=== PATIENT | male | born 1935 | race Native Hawaiian/Other Pacific Islander ===

== ENCOUNTER 2016-10-18 11:43 | Outpatient (CLI) | payer OTHER, BC ==
[~2016-10-18 11:43] MED LIST: AMBIEN5 MG PO; AMLO2.5T PO; ASA LO-DOSE81 MG PO; ATEN25TA21 PO; DONE5TAB PO; EQL FOLIC ACI400 MCG OR; FENT12DI3 TD; LEVO0.1T6 PO; LYRICA150 MG PO; NEXIUM40 M1 PO; NITROFURANTOIN100 M1 PO; OXYC5TAB53 PO; PANT40TA PO; SIMV40TA57 PO; TRAM50TA PO; VIT E & C EX; VITAMIN B-6200 M1 PO; ZANTAC300 MG PO; [UNRECOGNIZED DRUG - OTHER] OR
== END 2016-10-18 19:02 | disposition home or self-care (01) ==
LOC: LAB 11:43
DX: R10.84 Generalized abdominal pain (principal); R10.817 Generalized abdominal tenderness
CPT/HCPCS: 81000; 87077; 87086; 87088; 87186

== ENCOUNTER 2016-10-30 11:25 | Outpatient (CLI) | payer OTHER, BC ==
[2016-10-30 12:12] LABS: PLATELET COUNT 196 K/uL (142-355)
[2016-10-30 12:45] LABS: POTASSIUM 3.7 mmol/L (3.6-5.2)
[2016-10-30 13:26] LABS: PARTIAL THROMBOPLASTIN TIME 26.8 SECONDS (24.5-33.6)
== END 2016-10-30 19:35 | disposition home or self-care (01) ==
LOC: LABW 11:25
PROVIDERS: Surgery
DX: I71.4 Abdominal aortic aneurysm, without rupture (principal); Z01.810 Encounter for preprocedural cardiovascular examination; Z01.811 Encounter for preprocedural respiratory examination; Z01.812 Encounter for preprocedural laboratory examination; R79.89 Other specified abnormal findings of blood chemistry; N18.4 Chronic kidney disease, stage 4 (severe)
CPT/HCPCS: 36415; 80048; 85027; 85610; 85730; 93005

== ENCOUNTER 2016-11-23 10:51 | Inpatient (IN) | payer OTHER, BC ==
[~2016-11-23] VITALS: Ht 182.9 cm; Wt 96.2 kg
[2016-11-23 12:00] VITALS: BP 162/54; TEMP 98.3
[2016-11-23 12:51] VITALS: BP 144/80; TEMP 97.8; Ht 182.9 cm; Wt 96.2 kg
[2016-11-23 13:51] LABS: PLATELET COUNT 303 K/uL (142-355)
[2016-11-23 14:18] LABS: POTASSIUM 3.6 mmol/L (3.6-5.2); SODIUM 137 mmol/L (136-145)
[2016-11-23 16:00] VITALS: BP 167/76; TEMP 98.1
[2016-11-23 20:00] VITALS: BP 134/63; TEMP 97.9
[2016-11-24] VITALS: BP 143/75; TEMP 97.3
[2016-11-24 04:00] VITALS: BP 131/74; TEMP 97.3
[2016-11-24 05:13] LABS: PLATELET COUNT 310 K/uL (142-355)
[2016-11-24 05:34] LABS: POTASSIUM 3.8 mmol/L (3.6-5.2)
[2016-11-24 08:00] VITALS: BP 147/81; TEMP 97.6
[2016-11-24] MEDS ORDERED: FOLI1TAB26 PO (08:06)
[2016-11-24] MEDS ORDERED: HYDRALAZINE25 MG PO (08:18)
[2016-11-24] MEDS ORDERED: VITAMIN E400 UNIT OR (08:20)
[2016-11-24] MEDS ORDERED: TEMA30CA18 PO (08:21)
[2016-11-24] MEDS ORDERED: CYAN10009 IM (08:25)
[2016-11-24] MEDS ORDERED: ZINC100 M1 OR (08:30)
[2016-11-24] MEDS ORDERED: METOCLOPRAM5 MG OR (08:32)
[2016-11-24] MEDS ORDERED: ROBITUSSIN100 MG/5 M OR (08:36)
[2016-11-24] MEDS ORDERED: PROTONIX20 MG PO (08:38)
[2016-11-24 12:00] VITALS: BP 117/56; TEMP 97.8
[2016-11-24 14:30] LABS: POTASSIUM 3.3 mmol/L (3.6-5.2); SODIUM 136 mmol/L (136-145)
[2016-11-24 14:38] LABS: PLATELET COUNT 308 K/uL (142-355)
[2016-11-24 16:00] VITALS: BP 130/50; TEMP 97.9
[2016-11-24 20:00] VITALS: BP 137/65; TEMP 97.8
[2016-11-25 00:29] VITALS: BP 131/50; TEMP 97.8
[2016-11-25 04:00] VITALS: BP 116/50; TEMP 97.9
[2016-11-25 04:51] LABS: PLATELET COUNT 337 K/uL (142-355)
[2016-11-25 04:54] LABS: POTASSIUM 3.9 mmol/L (3.6-5.2)
[2016-11-25 08:00] VITALS: BP 136/68; TEMP 98
[2016-11-25 12:24] VITALS: BP 126/63; TEMP 97.4
[2016-11-25 16:00] VITALS: BP 142/65; TEMP 97.4
[2016-11-25 20:00] VITALS: BP 150/71; TEMP 97.7
[2016-11-26 00:25] VITALS: BP 135/69; TEMP 97.5
[2016-11-26 05:09] VITALS: BP 142/75; TEMP 97.8
[2016-11-26 06:21] LABS: PLATELET COUNT 318 K/uL (142-355)
[2016-11-26 08:00] VITALS: BP 142/72; TEMP 98
[2016-11-26 12:00] VITALS: BP 125/53; TEMP 98.7
[2016-11-26 16:00] VITALS: BP 138/68; TEMP 97.7
[2016-11-26 19:57] VITALS: BP 145/60; TEMP 97.6
[2016-11-27] VITALS: BP 169/88; TEMP 97.8
[2016-11-27 04:55] LABS: PLATELET COUNT 286 K/uL (142-355)
[2016-11-27 05:06] LABS: POTASSIUM 4.6 mmol/L (3.6-5.2)
[2016-11-27 05:31] VITALS: BP 147/90; TEMP 98
[2016-11-27 08:20] VITALS: BP 163/88; TEMP 97.9
[2016-11-27 12:00] VITALS: BP 138/62; TEMP 98
[2016-11-27 16:00] VITALS: BP 186/81; TEMP 98.3
[2016-11-27 20:00] VITALS: BP 114/65; TEMP 97.9
[2016-11-28] VITALS: BP 140/70; TEMP 97.9
[2016-11-28 04:00] VITALS: BP 148/71; TEMP 97.9
[2016-11-28 06:36] LABS: POTASSIUM 4.2 mmol/L (3.6-5.2)
[2016-11-28 07:13] LABS: PLATELET COUNT 281 K/uL (142-355)
[2016-11-28 08:00] VITALS: BP 149/89; TEMP 98
[2016-11-28 12:00] VITALS: BP 135/76; TEMP 98.1
[2016-11-28 16:00] VITALS: BP 138/62; TEMP 98
[2016-11-28 20:00] VITALS: BP 125/66; TEMP 97.9
[2016-11-29 00:59] VITALS: BP 128/59; TEMP 98.1
[2016-11-29 04:00] VITALS: BP 147/78; TEMP 98.1
[2016-11-29 06:01] LABS: POTASSIUM 4.8 mmol/L (3.6-5.2)
[2016-11-29 06:19] LABS: PLATELET COUNT 278 K/uL (142-355)
[2016-11-29 08:00] VITALS: BP 134/84; TEMP 97.9
== END 2016-11-29 10:36 | disposition home health service (06) | DRG 194 ==
LOC: MED/SURG 10:51
PROVIDERS: Internal Medicine; ADMIT Internal Medicine
DX: J18.8 Other pneumonia, unspecified organism (principal); N39.0 Urinary tract infection, site not specified; N18.4 Chronic kidney disease, stage 4 (severe); D72.828 Other elevated white blood cell count; R41.82 Altered mental status, unspecified; I12.9 Hypertensive chronic kidney disease with stage 1 through stage 4 chronic kidney disease, or unspecified chronic kidney disease; K21.9 Gastro-esophageal reflux disease without esophagitis; K44.9 Diaphragmatic hernia without obstruction or gangrene
CPT/HCPCS: 36415; 36591; 36600; 80048; 80053; 81000; 82550; 82805; 82948; 83605; 83735; 83880; 84484; 85027; 87040; 87077; 87088; 87185; 87186; 87205; 93005; 94640; 94664; 94760; 96372; J1644; J1956; J2920; J2930; J3370

== ENCOUNTER 2017-01-02 09:28 | Outpatient (CLI) | payer OTHER, BC ==
[~2017-01-02 09:28] MED LIST changes: +CYAN10009 IM; +FOLI1TAB26 PO; +HYDRALAZINE25 MG PO; +METOCLOPRAM5 MG OR; +PROTONIX20 MG PO; +ROBITUSSIN100 MG/5 M OR; +TEMA30CA18 PO; +VITAMIN E400 UNIT OR; +ZINC100 M1 OR
== END 2017-01-02 11:30 | disposition home or self-care (01) ==
LOC: LABW 09:28
DX: R19.7 Diarrhea, unspecified (principal)
CPT/HCPCS: 82272; 87015; 87045; 87205; 87206; 87328; 87329; 87338; 87798; 87899

== ENCOUNTER 2017-03-13 14:59 | Inpatient (IN) | payer OTHER, BC ==
[~2017-03-13] VITALS: Ht 182.9 cm; Wt 98.7 kg
[2017-03-13] VITALS (7 sets, daily range): BP systolic 90–155; BP diastolic 52–90; TEMP 97.7–97.9
[2017-03-13 15:33] LABS: PLATELET COUNT 217 K/uL (142-355)
[2017-03-13 15:50] LABS: PARTIAL THROMBOPLASTIN TIME 25.3 SECONDS (24.5-33.6)
[2017-03-13 16:23] LABS: POTASSIUM 4.3 mmol/L (3.6-5.2)
[2017-03-13] MEDS ORDERED: POTASSIUM GLUC550 M1 PO (19:50)
--- NOTE | 2017-03-13 20:00 | NUR ---
Received pt from ER via stretcher. Pt alert and oriented. No distress noted at this time. Denies pain. Assessment completed. Urostomy noted with clear urine in bag. Lower ext cool to touch. Pt has paralasis to lower ext. O2 via NC at 3L/min. 20g to RAC with NS infusing at 175cc/hr. No s/s of infiltration noted. Lungs clear and diminished to auscultation. Bed in lower position. Call light within reach. Will continue to monitor.
--- NOTE | 2017-03-13 20:45 | NUR ---
Pt family at bedside. Went over home meds with . left urostomy equipment at bedside for pt.
--- NOTE | 2017-03-13 21:00 | NUR ---
Dr. Yañez notified of pt's home meds. Orders given at this time.
[2017-03-14] VITALS (24 sets, daily range): BP systolic 83–187; BP diastolic 50–91; TEMP 98–98.9
--- NOTE | 2017-03-14 00:30 | NUR ---
Pt resting in bed with eyes closed. No distress noted at this time. VSS per monitor.
--- NOTE | 2017-03-14 04:56 | NUR ---
Pt had rhythm change on monitor. EKG ordered at this time.
[2017-03-14 05:42] LABS: PLATELET COUNT 151 K/uL (142-355)
--- NOTE | 2017-03-14 05:56 | NUR ---
Dr. Yañez notified of pt's EKG. No orders given at this time.
[2017-03-14 06:02] LABS: POTASSIUM 4.1 mmol/L (3.6-5.2)
--- NOTE | 2017-03-14 08:00 | NUR ---
AM ASSESSMENT COMPLETE
--- NOTE | 2017-03-14 10:45 | NUR ---
DR JORGENSEN AT BS
--- NOTE | 2017-03-14 12:32 | NUR ---
FAMILY AT BS
--- NOTE | 2017-03-14 16:07 | NUR ---
FAMILY AT BS
--- NOTE | 2017-03-14 18:00 | NUR ---
PT ALERT AND ORIENTED. PT HAS HAD NO C/O DURING THIS SHIFT. UROSTOMY INTACT AND DRAINING, SEDIMENT NOTED IN URINE. IV INTACT, FLUIDS INFUSING W/O DIFF @150ML/HR.
--- NOTE | 2017-03-14 20:00 | NUR ---
FAMILY AT BEDSIDE. MULTIPLE PEOPLE IN AND OUT OF PATIENTS ROOM TWO AT A TIME. PATIENT AWAKE AND TALKING. NO ACUTE DISTRESS NOTED.
--- NOTE | 2017-03-14 20:05 | NUR ---
RESPIRATORY AT BEDSIDE FOR NEBULIZED TREATMENT AND INSPIRATORY SPIROMETER
--- NOTE | 2017-03-14 21:41 | NUR ---
[facility] CALLED IN FOR POSITIVE BLOOD CULTURE. DR JORGENSEN NOTIFIED BY PHONE. NO CHANGE IN PATIENT TREATMENT.
--- NOTE | 2017-03-14 22:40 | NUR ---
RESPIRATORY AT BEDSIDE FOR NEBULIZED TREATMENT AND INSPIRATORY SPIROMETER.
[2017-03-15] VITALS (19 sets, daily range): BP systolic 117–155; BP diastolic 54–83; TEMP 97.6–98.2
--- NOTE | 2017-03-15 03:27 | NUR ---
RESPIRATORY AT BEDSIDE FOR NEBULIZED TREATMENT AND INSPIRATORY SPIROMETER. PATIENT SAID " I FEEL LIKE THESE ARE KILLING ME." PATIENT SAID IT CAUSES MILD DISCOMFORT IN HIS CHEST AND MAKES HIM FEEL FUNNY. NO CHANGE IN HEART RATE, BLOOD PRESSURE, RESPIRATIONS, OR O2 SATURATION NOTED DURRING DISCOMFORT. PATIENT ADVISED THIS HAPPENS EVERY TIME HE HAS TAKEN NEBULIZED BREATHING TREATMENTS IN THE PAST. NO ACUTE DISTRESS NOTED. WILL CONTINUE TO MONITOR PATIENT FOR CHANGES.
--- NOTE | 2017-03-15 05:05 | NUR ---
PATIENT ASLEEP AND AWAKE TO VOICE. NO ACUTE DISTRESS NOTED.
--- NOTE | 2017-03-15 06:00 | NUR ---
NEW IV STARTED 22 GA RIGHT HAND. BLOOD DRAWN FOR LABS. NO COMPLAINTS
[2017-03-15 06:21] LABS: PLATELET COUNT 133 K/uL (142-355)
[2017-03-15 06:37] LABS: POTASSIUM 3.4 mmol/L (3.6-5.2)
--- NOTE | 2017-03-15 07:30 | NUR ---
RESP AT BS FOR BREATHING TREATMENT. NAD NOTED. PT LOW FOWLERS. IV INTACT AND PATENT. SOUTH TO BSD.
--- NOTE | 2017-03-15 08:30 | NUR ---
PT HIGH FOWLERS EATING BREAKFAST. NAD NOTED. PT DENIES NEEDS/COMPLAINTS. IV INTACT AND PATENT. NO S/S INFILTRATION. O2 ON ORDERED.
--- NOTE | 2017-03-15 09:40 | NUR ---
AM MEDS TAKEN WITHOUT DIFFICULTY. NAD NOTED.
--- NOTE | 2017-03-15 10:38 | NUR ---
FAMILY AT BS TO VISIT. PT DROWSY AT THIS TIME. WILL AROUSE TO VOICE AND STIMULI BUT QUICKLY FALLS BACK TO SLEEP. PT STATED TO HE DID NOT GET MUCH SLEEP THROUGH THE NIGHT AND WAS TIRED. VITALS STABLE AT THIS TIME. EKG DONE. WILL MONITOR.
--- NOTE | 2017-03-15 12:07 | NUR ---
DR JORGENSEN AT BS TALKING WITH PT AND FAMILY. PT ALERT AND ORIENTED. NAD NOTED AT THIS TIME
--- NOTE | 2017-03-15 12:30 | NUR ---
PT HIGH FOWLERS EATING LUNCH. NAD NOTED. IV INTACT AND PATENT. AT BS.
--- NOTE | 2017-03-15 14:16 | NUR ---
PT RESTING WITH EYES CLOSED. AROUSES EASILY. NAD NOTED. AT BS.
--- NOTE | 2017-03-15 15:00 | NUR ---
PT RESTING WITH EYES CLOSED. NAD NOTED. FAMILY AT .
--- NOTE | 2017-03-15 16:32 | NUR ---
[facility] WITH RESP IN AT THIS TIME FOR ECHO.
--- NOTE | 2017-03-15 20:00 | NUR ---
PM ASSESSMENT COMPLETED. PT SMILING AND TALKING WITH NURSE. SOUTH DRAINING AT BEDSIDE. IV SITE WITHOUT REDNESS OR SWELLING. INFUSING PER PUMP.
--- NOTE | 2017-03-15 20:12 | NUR ---
PT C/O NECK PAIN. PAIN SCALE 6. MEDICATED WITH TRAMADOL 100MG ORDERED. PT WITH VISITORS AT BEDSIDE.
--- NOTE | 2017-03-15 23:55 | NUR ---
PT C/O NECK PAIN. STATES HE TAKES TRAMADOL AROUND THE CLOCK AT HOME. DR. BLOOM NOTIFIED. ORDER RECEIVED.
[2017-03-16] VITALS (16 sets, daily range): BP systolic 133–189; BP diastolic 70–103; TEMP 97.8–98.2
--- NOTE | 2017-03-16 00:07 | NUR ---
TRAMADOL 100MG GIVEN PO FOR NECK PAIN ORDERED. PAIN SCALE 7
--- NOTE | 2017-03-16 04:53 | NUR ---
LAB PRESENT FOR BLOOD DRAW. PT AWAKE AND ALERT. STATES HE HAS NOT SLEPT MUCH.
[2017-03-16 05:35] LABS: PLATELET COUNT 117 K/uL (142-355)
--- NOTE | 2017-03-16 09:00 | NUR ---
PT NAUSEATED, HE STATES THAT IT HAPPENS SOMETIMES, STATES THAT HE DOES NOT NEED ANYTHING AND THAT IT WILL PASS
--- NOTE | 2017-03-16 10:12 | NUR ---
FAMILY AT BS
[2017-03-16] MEDS ORDERED: ZOFRAN8 MG PO (12:13)
--- NOTE | 2017-03-16 12:34 | NUR ---
DR JORGENSEN AT BS
--- NOTE | 2017-03-16 15:05 | NUR ---
PT TRANFERRED TO #[id number]
--- NOTE | 2017-03-16 15:30 | NUR ---
REPORT GIVEN TO CRISTI SCHILLING RN.
--- NOTE | 2017-03-16 16:10 | NUR ---
6295 REC'D PT FROM ICU VIA BED. PT ASSISTED TO BED IN ROOM 1117. FAMILY AT BS. RT ARM NOTED TO BE SWOLLEN AT IV SITE. IVF'S DC'D AT THIS TIME. IV SITE DC'D ROUTINE SITE CARE GIVEN. ICU NURSE NOTIFIED FOR SITE VERIFICATION. WILL OBTAIN NEW IV SITE
[2017-03-17] VITALS: BP 172/90; TEMP 98.5
[2017-03-17 04:00] VITALS: BP 154/82; TEMP 97.8
[2017-03-17 05:07] LABS: PLATELET COUNT 136 K/uL (142-355)
[2017-03-17 05:20] LABS: POTASSIUM 3.5 mmol/L (3.6-5.2)
[2017-03-17 08:00] VITALS: BP 164/84; TEMP 98.3
[2017-03-17 12:00] VITALS: BP 157/71; TEMP 98.8
[2017-03-17 16:00] VITALS: BP 141/72; TEMP 98.6
[2017-03-17 20:00] VITALS: BP 111/69; TEMP 98.4
[2017-03-18] VITALS: BP 139/76; TEMP 97.9
[2017-03-18 04:00] VITALS: BP 128/81; TEMP 98.5
[2017-03-18 06:07] LABS: PLATELET COUNT 127 K/uL (142-355)
[2017-03-18 06:12] LABS: POTASSIUM 3.5 mmol/L (3.6-5.2)
[2017-03-18 08:00] VITALS: BP 160/85; TEMP 98
[2017-03-18 11:47] VITALS: BP 158/89; TEMP 98.3
[2017-03-18 16:00] VITALS: BP 127/97; TEMP 98.1
--- NOTE | 2017-03-18 16:55 | NUR ---
D/C INSTRUCTIONS GIVEN TO AND PT. IV D/C'D L HAND AND R HAND CATH TIP INTACT.
== END 2017-03-18 17:10 | disposition home or self-care (01) | DRG 871 ==
LOC: ED 14:59 → ICU 17:46 → MED/SURG 03-16 15:05
PROVIDERS: Internal Medicine; ADMIT Specialist
DX: A41.89 Other specified sepsis (principal); J18.8 Other pneumonia, unspecified organism; N39.0 Urinary tract infection, site not specified; B95.62 Methicillin resistant Staphylococcus aureus infection as the cause of diseases classified elsewhere; I12.9 Hypertensive chronic kidney disease with stage 1 through stage 4 chronic kidney disease, or unspecified chronic kidney disease; N18.3 Chronic kidney disease, stage 3 (moderate); E87.6 Hypokalemia; I49.1 Atrial premature depolarization; J44.9 Chronic obstructive pulmonary disease, unspecified; Z85.46 Personal history of malignant neoplasm of prostate; Z85.51 Personal history of malignant neoplasm of bladder
CPT/HCPCS: 36415; 36600; 80048; 80053; 80202; 81000; 82550; 82805; 83605; 83735; 84100; 84484; 85027; 85610; 85730; 87040; 87077; 87086; 87088; 87185; 87186; 87205; 93005; 93306; 94640; 94664; 94760; 96361; 96372; 96374; 99284; J1644; J1720; J2405; J2543; J3480

== ENCOUNTER 2017-04-25 14:44 | Outpatient (CLI) | payer OTHER, BC ==
[~2017-04-25 14:44] MED LIST changes: +POTASSIUM GLUC550 M1 PO; +ZOFRAN8 MG PO
== END 2017-04-25 19:18 | disposition home or self-care (01) ==
LOC: RAD 14:44
DX: J40 Bronchitis, not specified as acute or chronic (principal)

== ENCOUNTER 2017-07-05 07:56 | Outpatient (CLI) | payer OTHER, BC | END 2017-07-05 19:10 | disposition home or self-care (01) | LOC: RESP 07:56 | DX: R06.02 Shortness of breath (principal) | CPT/HCPCS: 94640; 94664 ==

== ENCOUNTER 2017-07-12 09:27 | Outpatient (CLI) | payer OTHER, BC ==
[2017-07-12 10:37] LABS: PLATELET COUNT 188 K/uL (142-355)
[2017-07-12 11:13] LABS: POTASSIUM 3.4 mmol/L (3.6-5.2)
== END 2017-07-12 19:06 | disposition home or self-care (01) ==
LOC: LABW 09:27
PROVIDERS: Internal Medicine
DX: I10 Essential (primary) hypertension (principal); E03.9 Hypothyroidism, unspecified; R82.99 Other abnormal findings in urine
CPT/HCPCS: 36415; 80053; 80061; 81000; 84439; 84443; 85027; 87077; 87086; 87088; 87186

== ENCOUNTER 2017-10-16 12:36 | Outpatient (CLI) | payer OTHER, BC ==
[2017-10-16 12:54] LABS: PLATELET COUNT 173 K/uL (142-355)
[2017-10-16 16:02] LABS: POTASSIUM 3.6 mmol/L (3.6-5.2); SODIUM 142.7 mmol/L (136-145)
== END 2017-10-16 19:50 | disposition home or self-care (01) ==
LOC: LAB 12:36
PROVIDERS: Internal Medicine
DX: R53.1 Weakness (principal); G62.89 Other specified polyneuropathies
CPT/HCPCS: 80053; 81000; 84443; 85027; 87077; 87086; 87088; 87186

== ENCOUNTER 2017-10-26 08:46 | Outpatient (CLI) | payer OTHER, BC ==
[2017-10-26 09:46] LABS: PLATELET COUNT 250 K/uL (142-355)
== END 2017-10-26 09:46 | disposition home or self-care (01) ==
LOC: US 08:46
PROVIDERS: Internal Medicine
DX: E80.6 Other disorders of bilirubin metabolism (principal); K31.84 Gastroparesis; K21.9 Gastro-esophageal reflux disease without esophagitis; I10 Essential (primary) hypertension
CPT/HCPCS: 36415; 80053; 85027

== ENCOUNTER 2017-11-20 11:17 | Outpatient (CLI) | payer OTHER, BC | END 2017-11-20 22:56 | disposition home or self-care (01) | LOC: RAD 11:17 | DX: R05 Cough (principal) ==

== ENCOUNTER 2017-12-05 16:23 | Outpatient (CLI) | payer OTHER, BC ==
[2017-12-06] MEDS ORDERED: UNITH DIRECT175 MCG OR (10:01)
[2017-12-06] MEDS ORDERED: MEMA5TAB OR (10:01)
== END 2017-12-05 16:41 | disposition short-term general hospital (02) ==
LOC: AMB 16:23
DX: R53.81 Other malaise (principal)
CPT/HCPCS: A0425; A0427

== ENCOUNTER 2017-12-05 16:39 | Inpatient (IN) | payer OTHER, BC ==
[~2017-12-05] VITALS: Ht 182.9 cm; Wt 107.5 kg
[2017-12-05] VITALS (7 sets, daily range): BP systolic 108–125; BP diastolic 56–67; TEMP 98.7–100.8
[2017-12-05 18:06] LABS: PLATELET COUNT 190 K/uL (142-355)
[2017-12-05 18:09] LABS: POTASSIUM 4.4 mmol/L (3.6-5.2)
[2017-12-06 01:16] VITALS: BP 140/66; TEMP 98; Ht 182.9 cm; Wt 107.5 kg
[2017-12-06 04:00] VITALS: BP 155/74; TEMP 97.7
[2017-12-06 08:00] VITALS: BP 142/51; TEMP 97.1
[2017-12-06 09:57] LABS: PLATELET COUNT 165 K/uL (142-355)
[2017-12-06] MEDS ORDERED: MEMA5TAB OR (10:01)
[2017-12-06] MEDS ORDERED: UNITH DIRECT175 MCG OR (10:01)
[2017-12-06 10:20] LABS: POTASSIUM 3.5 mmol/L (3.6-5.2)
[2017-12-06 12:00] VITALS: BP 174/73; TEMP 98
[2017-12-06 16:00] VITALS: BP 167/70; TEMP 98.3
[2017-12-06 20:00] VITALS: BP 169/75; TEMP 98.3
[2017-12-07] VITALS: BP 159/87; TEMP 98
[2017-12-07 04:00] VITALS: BP 104/83; TEMP 98
[2017-12-07 06:37] LABS: POTASSIUM 3.8 mmol/L (3.6-5.2)
[2017-12-07 06:54] LABS: PLATELET COUNT 158 K/uL (142-355)
[2017-12-07 08:03] VITALS: BP 168/75; TEMP 97.9
[2017-12-07 12:00] VITALS: BP 143/68; TEMP 98
[2017-12-07 16:00] VITALS: BP 144/67; TEMP 98
[2017-12-07 19:35] VITALS: BP 137/90; TEMP 97.9
[2017-12-08] VITALS: BP 169/75; TEMP 98.6
[2017-12-08 04:00] VITALS: BP 163/78; TEMP 98.6
[2017-12-08 05:23] LABS: PLATELET COUNT 156 K/uL (142-355)
[2017-12-08 06:11] LABS: POTASSIUM 4.1 mmol/L (3.6-5.2)
[2017-12-08 08:00] VITALS: BP 132/72; TEMP 98.2
[2017-12-08 12:00] VITALS: BP 166/78; TEMP 99
[2017-12-08 16:00] VITALS: BP 175/75; TEMP 99.1
[2017-12-08 19:43] VITALS: BP 146/71; TEMP 98.8
[2017-12-09] VITALS: BP 153/84; TEMP 98.9
[2017-12-09 04:00] VITALS: BP 165/86; TEMP 98.4
[2017-12-09 04:43] LABS: PLATELET COUNT 170 K/uL (142-355)
[2017-12-09 05:05] LABS: POTASSIUM 4.1 mmol/L (3.6-5.2)
[2017-12-09 08:00] VITALS: BP 145/73; TEMP 98.3
[2017-12-09 12:00] VITALS: BP 172/82; TEMP 97.4
[2017-12-09 16:00] VITALS: BP 160/73; TEMP 98.2
[2017-12-09 19:51] VITALS: BP 123/78; TEMP 98.3
[2017-12-10] VITALS: BP 141/86; TEMP 98.4
[2017-12-10 04:00] VITALS: BP 180/84; TEMP 98.1
[2017-12-10 05:37] LABS: PLATELET COUNT 169 K/uL (142-355)
[2017-12-10 05:52] LABS: POTASSIUM 4.1 mmol/L (3.6-5.2)
[2017-12-10 08:00] VITALS: BP 118/81; TEMP 98.1
== END 2017-12-10 11:09 | disposition home or self-care (01) | DRG 699 ==
LOC: ED 16:39 → MED/SURG 21:25
PROVIDERS: ADMIT Internal Medicine
DX: T83.518A Infection and inflammatory reaction due to other urinary catheter, initial encounter (principal); N39.0 Urinary tract infection, site not specified; N18.4 Chronic kidney disease, stage 4 (severe); B95.61 Methicillin susceptible Staphylococcus aureus infection as the cause of diseases classified elsewhere; F03.90 Unspecified dementia, unspecified severity, without behavioral disturbance, psychotic disturbance, mood disturbance, and anxiety; E86.0 Dehydration; D72.828 Other elevated white blood cell count; I12.9 Hypertensive chronic kidney disease with stage 1 through stage 4 chronic kidney disease, or unspecified chronic kidney disease; I25.10 Atherosclerotic heart disease of native coronary artery without angina pectoris; Z85.46 Personal history of malignant neoplasm of prostate; Z85.51 Personal history of malignant neoplasm of bladder; I25.2 Old myocardial infarction; E03.8 Other specified hypothyroidism; R05 Cough; J01.20 Acute ethmoidal sinusitis, unspecified; J01.00 Acute maxillary sinusitis, unspecified; J32.0 Chronic maxillary sinusitis; J32.2 Chronic ethmoidal sinusitis; Z93.6 Other artificial openings of urinary tract status
CPT/HCPCS: 36415; 80053; 81000; 83605; 85027; 87077; 87086; 87088; 87185; 87186; 94760; 96365; 96372; 99284; J0696; J1650; J3490

== ENCOUNTER 2018-02-01 14:41 | Outpatient (CLI) | payer OTHER, BC ==
[~2018-02-01 14:41] MED LIST changes: +MEMA5TAB OR; +UNITH DIRECT175 MCG OR
== END 2018-02-01 19:49 | disposition home or self-care (01) ==
LOC: RAD 14:41
DX: M25.562 Pain in left knee (principal)

== ENCOUNTER 2018-02-05 10:17 | Outpatient (CLI) | payer OTHER, BC ==
[2018-02-05] MEDS ORDERED: PRIM50TA4 PO (11:25)
[2018-02-05] MEDS ORDERED: PROM25TA52 PO (11:26)
[2018-02-05] MEDS ORDERED: HYDRALAZINE25 MG PO (18:46)
[2018-02-05] MEDS ORDERED: LEVO-T175 MCG PO (18:47)
[2018-02-05] MEDS ORDERED: MYSOLINE50 MG (18:50)
[2018-02-05] MEDS ORDERED: VITAMIN B650 MG PO (18:52)
[2018-02-05] MEDS ORDERED: POT CHLORIDE10 MEQ OR (18:54)
== END 2018-02-05 10:23 | disposition short-term general hospital (02) ==
LOC: AMB 10:17
DX: R50.9 Fever, unspecified (principal)
CPT/HCPCS: A0425; A0427

== ENCOUNTER 2018-02-05 10:23 | Inpatient (IN) | payer OTHER, BC ==
[~2018-02-05] VITALS: Ht 182.9 cm; Wt 108.9 kg
[2018-02-05 10:25] VITALS: BP 141/66; TEMP 102.9
[2018-02-05] MEDS ORDERED: PRIM50TA4 PO (11:25)
[2018-02-05] MEDS ORDERED: PROM25TA52 PO (11:26)
[2018-02-05 12:18] LABS: PLATELET COUNT 177 K/uL (142-355)
[2018-02-05 12:35] LABS: POTASSIUM 4.2 mmol/L (3.6-5.2)
[2018-02-05 12:42] VITALS: BP 155/74; TEMP 101.1
[2018-02-05 14:50] VITALS: BP 118/61; TEMP 99.2; Ht 182.9 cm; Wt 108.9 kg
[2018-02-05 16:00] VITALS: BP 118/61; TEMP 99.2
[2018-02-05] MEDS ORDERED: HYDRALAZINE25 MG PO (18:46)
[2018-02-05] MEDS ORDERED: LEVO-T175 MCG PO (18:47)
[2018-02-05] MEDS ORDERED: MYSOLINE50 MG (18:50)
[2018-02-05] MEDS ORDERED: VITAMIN B650 MG PO (18:52)
[2018-02-05] MEDS ORDERED: POT CHLORIDE10 MEQ OR (18:54)
[2018-02-05 20:00] VITALS: BP 147/76; TEMP 98.7
[2018-02-06] VITALS: BP 138/75; TEMP 98.9
[2018-02-06 04:00] VITALS: BP 154/64; TEMP 98.9
[2018-02-06 05:31] LABS: PLATELET COUNT 151 K/uL (142-355)
[2018-02-06 06:14] LABS: POTASSIUM 4.1 mmol/L (3.6-5.2)
[2018-02-06 08:00] VITALS: BP 159/77; TEMP 98.3
[2018-02-06 12:00] VITALS: BP 149/75; TEMP 98
[2018-02-06 16:00] VITALS: BP 159/78; TEMP 98.6
[2018-02-06 20:24] VITALS: BP 157/70; TEMP 98.7
[2018-02-07] VITALS: BP 177/88; TEMP 98.5
[2018-02-07 04:00] VITALS: BP 160/69; TEMP 98.8
[2018-02-07 05:27] LABS: PLATELET COUNT 142 K/uL (142-355)
[2018-02-07 05:47] LABS: POTASSIUM 4.1 mmol/L (3.6-5.2)
[2018-02-07 08:00] VITALS: BP 153/53; TEMP 98.6
[2018-02-07 12:00] VITALS: BP 161/72; TEMP 98.7
[2018-02-07 16:00] VITALS: BP 164/83; TEMP 98.4
[2018-02-07 20:12] VITALS: BP 173/73; TEMP 98.5
[2018-02-08 00:28] VITALS: BP 188/86; TEMP 98
[2018-02-08 04:00] VITALS: BP 181/88; TEMP 99.2
[2018-02-08 05:47] LABS: PLATELET COUNT 168 K/uL (142-355)
[2018-02-08 06:15] LABS: POTASSIUM 4.1 mmol/L (3.6-5.2)
[2018-02-08 08:00] VITALS: BP 165/90; TEMP 99.8
[2018-02-08 12:00] VITALS: BP 189/85; TEMP 98.4
[2018-02-08 16:00] VITALS: BP 180/87; TEMP 98.2
[2018-02-08 20:00] VITALS: BP 154/74; TEMP 98.7
[2018-02-09] VITALS: BP 181/88; TEMP 98.4
[2018-02-09 04:00] VITALS: BP 137/73; TEMP 98.9
[2018-02-09 05:11] LABS: PLATELET COUNT 172 K/uL (142-355)
[2018-02-09 05:40] LABS: POTASSIUM 3.9 mmol/L (3.6-5.2)
[2018-02-09 08:00] VITALS: BP 155/74; TEMP 97.7
[2018-02-09 12:00] VITALS: BP 144/66; TEMP 98.2
[2018-02-09 16:00] VITALS: BP 155/85; TEMP 98.3
[2018-02-09 20:00] VITALS: BP 161/67; TEMP 98
[2018-02-10] VITALS (7 sets, daily range): BP systolic 120–174; BP diastolic 68–82; TEMP 97.9–98.4
[2018-02-10 06:54] LABS: POTASSIUM 3.9 mmol/L (3.6-5.2)
[2018-02-10 07:11] LABS: PLATELET COUNT 168 K/uL (142-355)
[2018-02-11 03:58] VITALS: BP 159/72; TEMP 97.8
[2018-02-11 08:00] VITALS: BP 154/71; TEMP 97.7
== END 2018-02-11 10:00 | disposition home or self-care (01) | DRG 178 ==
LOC: ED 10:23 → MED/SURG 12:40
PROVIDERS: Internal Medicine; ADMIT Internal Medicine
DX: J69.0 Pneumonitis due to inhalation of food and vomit (principal); N39.0 Urinary tract infection, site not specified; N18.4 Chronic kidney disease, stage 4 (severe); G82.20 Paraplegia, unspecified; B96.89 Other specified bacterial agents as the cause of diseases classified elsewhere; N28.9 Disorder of kidney and ureter, unspecified; E11.40 Type 2 diabetes mellitus with diabetic neuropathy, unspecified; F01.50 Vascular dementia, unspecified severity, without behavioral disturbance, psychotic disturbance, mood disturbance, and anxiety; I25.10 Atherosclerotic heart disease of native coronary artery without angina pectoris; J44.9 Chronic obstructive pulmonary disease, unspecified; Z85.46 Personal history of malignant neoplasm of prostate; Z85.51 Personal history of malignant neoplasm of bladder; D72.828 Other elevated white blood cell count; M89.8X6 Other specified disorders of bone, lower leg; M79.1 Myalgia; M79.89 Other specified soft tissue disorders; I10 Essential (primary) hypertension; A08.8 Other specified intestinal infections; Z93.6 Other artificial openings of urinary tract status
CPT/HCPCS: 36415; 80053; 81000; 84439; 84443; 85027; 87040; 87070; 87077; 87086; 87088; 87186; 87205; 93005; 94640; 94664; 94760; 99283; J0456; J0696; J1650; J1956

== ENCOUNTER 2018-03-04 08:24 | Outpatient (CLI) | payer OTHER, BC ==
[~2018-03-04 08:24] MED LIST changes: +LEVO-T175 MCG PO; +MYSOLINE50 MG; +POT CHLORIDE10 MEQ OR; +PRIM50TA4 PO; +PROM25TA52 PO; +VITAMIN B650 MG PO
== END 2018-03-04 20:14 | disposition home or self-care (01) ==
LOC: MRI 08:24
DX: M25.862 Other specified joint disorders, left knee (principal)

== ENCOUNTER 2018-06-27 12:43 | Outpatient (CLI) | payer OTHER, BC | END 2018-06-27 21:53 | disposition home or self-care (01) | LOC: RAD 12:43 | DX: R05 Cough (principal) ==

== ENCOUNTER 2018-07-02 10:22 | Outpatient (CLI) | payer OTHER, BC | END 2018-07-02 22:17 | disposition home or self-care (01) | LOC: CT 10:22 | DX: J84.9 Interstitial pulmonary disease, unspecified (principal) ==

== ENCOUNTER 2018-09-27 11:15 | Outpatient (CLI) | payer OTHER, BC ==
[2018-09-27 11:58] LABS: PLATELET COUNT 208 K/uL (142-355)
== END 2018-09-27 22:52 | disposition home or self-care (01) ==
LOC: LABW 11:15
PROVIDERS: Physician Assistant
DX: E03.9 Hypothyroidism, unspecified (principal); E78.00 Pure hypercholesterolemia, unspecified; G62.9 Polyneuropathy, unspecified; Z79.899 Other long term (current) drug therapy; E55.9 Vitamin D deficiency, unspecified
CPT/HCPCS: 36415; 80061; 82306; 83036; 84439; 84443; 85027

== ENCOUNTER 2018-11-10 17:27 | Inpatient (IN) | payer OTHER, BC ==
[~2018-11-10] VITALS: Ht 182.9 cm; Wt 103.1 kg
[~2018-11-10 17:27] MED LIST changes: -MEMA5TAB OR; +MEMA5TAB PO
[2018-11-10 17:30] VITALS: BP 179/91; TEMP 100
[2018-11-10 18:25] LABS: PLATELET COUNT 171 K/uL (142-355)
[2018-11-10 19:00] VITALS: BP 153/93
[2018-11-10 20:00] VITALS: BP 161/91
[2018-11-10 21:00] VITALS: BP 165/83
[2018-11-10] MEDS ORDERED: NEXIUM20 M1 PO (21:46)
[2018-11-10] MEDS ORDERED: VITAMIN D3400 UNI2 PO (21:51)
[2018-11-10 22:00] VITALS: BP 170/87
[2018-11-10 22:26] VITALS: BP 149/87; TEMP 98.2; Ht 182.9 cm; Wt 103.1 kg
[2018-11-11] VITALS: BP 149/87; TEMP 98.2
[2018-11-11] MEDS ORDERED: RANI150T78 PO (01:28)
[2018-11-11] MEDS ORDERED: PANTOPRAZOLE 40MG TA PO (01:31)
[2018-11-11] MEDS ORDERED: NEXIUM40 M1 PO (01:32)
[2018-11-11 04:00] VITALS: BP 162/87; TEMP 98.2
[2018-11-11 06:09] LABS: PLATELET COUNT 156 K/uL (142-355)
[2018-11-11 06:35] LABS: POTASSIUM 3.3 mmol/L (3.6-5.2)
[2018-11-11 08:00] VITALS: BP 127/65; TEMP 97.6
[2018-11-11 12:00] VITALS: BP 111/66; TEMP 98.5
[2018-11-11 16:00] VITALS: BP 132/49; TEMP 98.4
[2018-11-11 20:00] VITALS: BP 123/56; TEMP 98.8
[2018-11-12] VITALS: BP 143/64; TEMP 98.2
[2018-11-12 04:00] VITALS: BP 127/67; TEMP 97.4
[2018-11-12 08:00] VITALS: BP 156/84; TEMP 97.5
[2018-11-12 09:05] LABS: POTASSIUM 3.9 mmol/L (3.6-5.2)
[2018-11-12 09:08] LABS: PLATELET COUNT 176 K/uL (142-355)
[2018-11-12 12:00] VITALS: BP 139/71; TEMP 98.1
[2018-11-12 16:00] VITALS: BP 155/78; TEMP 97.5
[2018-11-12 20:00] VITALS: BP 124/62; TEMP 98.2
[2018-11-13] VITALS: BP 120/73; TEMP 98.2
[2018-11-13 04:00] VITALS: BP 126/68; TEMP 97.8
[2018-11-13 08:00] VITALS: BP 125/54; TEMP 97.7
[2018-11-13 09:54] LABS: PLATELET COUNT 188 K/uL (142-355)
[2018-11-13 10:31] LABS: POTASSIUM 4.4 mmol/L (3.6-5.2)
[2018-11-13 12:00] VITALS: BP 132/72; TEMP 97.6
[2018-11-13 16:00] VITALS: BP 133/53; TEMP 97.9
[2018-11-13 20:00] VITALS: BP 132/55; TEMP 97.8
[2018-11-14] VITALS: BP 142/73; TEMP 97.7
[2018-11-14 04:00] VITALS: BP 162/75; TEMP 98.2
[2018-11-14 05:39] LABS: PLATELET COUNT 156 K/uL (142-355)
[2018-11-14 06:03] LABS: POTASSIUM 4.6 mmol/L (3.6-5.2)
[2018-11-14 08:00] VITALS: BP 148/65; TEMP 97.9
[2018-11-14 12:00] VITALS: BP 138/60; TEMP 97.8
[2018-11-14 16:00] VITALS: BP 123/61; TEMP 97.7
[2018-11-14 20:00] VITALS: BP 155/65; TEMP 98.1
[2018-11-15] VITALS: BP 137/77; TEMP 97.8
[2018-11-15 04:00] VITALS: BP 162/67; TEMP 97.6
[2018-11-15 08:00] VITALS: BP 145/78; TEMP 98
[2018-11-15 09:21] LABS: PLATELET COUNT 151 K/uL (142-355)
[2018-11-15 09:53] LABS: POTASSIUM 4.8 mmol/L (3.6-5.2)
[2018-11-15 12:00] VITALS: BP 135/66; TEMP 97.9
[2018-11-15 16:00] VITALS: BP 129/64; TEMP 97.5
[2018-11-15 20:00] VITALS: BP 124/79; TEMP 98.5
[2018-11-16] VITALS: BP 163/93; TEMP 97.5
[2018-11-16 04:00] VITALS: BP 146/74; TEMP 98.3
[2018-11-16 06:31] LABS: PLATELET COUNT 168 K/uL (142-355)
[2018-11-16 07:18] LABS: POTASSIUM 4.5 mmol/L (3.6-5.2)
[2018-11-16 08:00] VITALS: BP 173/96; TEMP 97.9
[2018-11-16 12:00] VITALS: BP 148/90; TEMP 97.9
[2018-11-16 16:00] VITALS: BP 146/63; TEMP 98.2
[2018-11-16 20:00] VITALS: BP 147/76; TEMP 98.2
[2018-11-17] VITALS: BP 170/86; TEMP 98.4
[2018-11-17 03:58] VITALS: BP 145/79; TEMP 97.6
[2018-11-17 05:31] LABS: PLATELET COUNT 171 K/uL (142-355)
[2018-11-17 05:51] LABS: POTASSIUM 4.3 mmol/L (3.6-5.2)
[2018-11-17 08:00] VITALS: BP 137/82; TEMP 98.2
[2018-11-17 12:00] VITALS: BP 150/84; TEMP 98.5
[2018-11-17 16:00] VITALS: BP 141/74; TEMP 98.5
[2018-11-17 20:00] VITALS: BP 142/74; TEMP 98
[2018-11-18] VITALS: BP 131/78; TEMP 98.9
[2018-11-18 04:00] VITALS: BP 114/69; TEMP 98.6
[2018-11-18 08:00] VITALS: BP 161/87; TEMP 97.6
[2018-11-18 08:17] LABS: PLATELET COUNT 156 K/uL (142-355)
[2018-11-18 08:28] LABS: POTASSIUM 4.4 mmol/L (3.6-5.2)
[2018-11-18 12:00] VITALS: BP 152/83; TEMP 97.8
[2018-11-18 16:00] VITALS: BP 129/75; TEMP 98.3
[2018-11-18 20:00] VITALS: BP 134/71; TEMP 97.9
[2018-11-19] VITALS: BP 141/78; TEMP 97.8
[2018-11-19 04:00] VITALS: BP 133/70; TEMP 98.2
[2018-11-19 08:00] VITALS: BP 124/80; TEMP 97.4
[2018-11-19 08:33] LABS: PLATELET COUNT 158 K/uL (142-355)
[2018-11-19 08:46] LABS: POTASSIUM 4.6 mmol/L (3.6-5.2)
[2018-11-19 12:00] VITALS: BP 136/73; TEMP 98
[2018-11-19 16:00] VITALS: BP 138/76; TEMP 98.3
[2018-11-19 20:00] VITALS: BP 122/67; TEMP 97.7
[2018-11-20] VITALS: BP 146/68; TEMP 97.9
[2018-11-20 04:00] VITALS: BP 119/75; TEMP 97.8
[2018-11-20 05:45] LABS: PLATELET COUNT 159 K/uL (142-355)
[2018-11-20 05:53] LABS: POTASSIUM 4.5 mmol/L (3.6-5.2)
[2018-11-20 08:05] VITALS: BP 121/76; TEMP 98.5
[2018-11-20 12:06] VITALS: BP 130/64; TEMP 97.7
== END 2018-11-20 16:00 | disposition home or self-care (01) | DRG 177 ==
LOC: ED 17:27 → MED/SURG 21:30
PROVIDERS: Family Medicine; Internal Medicine; ADMIT Family Medicine
DX: J69.0 Pneumonitis due to inhalation of food and vomit (principal); I50.21 Acute systolic (congestive) heart failure; I13.0 Hypertensive heart and chronic kidney disease with heart failure and stage 1 through stage 4 chronic kidney disease, or unspecified chronic kidney disease; J44.0 Chronic obstructive pulmonary disease with (acute) lower respiratory infection; N18.4 Chronic kidney disease, stage 4 (severe); Z87.01 Personal history of pneumonia (recurrent); E11.22 Type 2 diabetes mellitus with diabetic chronic kidney disease; J84.89 Other specified interstitial pulmonary diseases; E11.42 Type 2 diabetes mellitus with diabetic polyneuropathy; I25.10 Atherosclerotic heart disease of native coronary artery without angina pectoris; F01.50 Vascular dementia, unspecified severity, without behavioral disturbance, psychotic disturbance, mood disturbance, and anxiety; Z85.46 Personal history of malignant neoplasm of prostate; Z85.51 Personal history of malignant neoplasm of bladder; G83.10 Monoplegia of lower limb affecting unspecified side; E03.8 Other specified hypothyroidism; I25.2 Old myocardial infarction; I35.0 Nonrheumatic aortic (valve) stenosis; I48.91 Unspecified atrial fibrillation; G25.2 Other specified forms of tremor
CPT/HCPCS: 36415; 80053; 81000; 83605; 83735; 83880; 84443; 85027; 87040; 87070; 87077; 87185; 87186; 87205; 87502; 87651; 87899; 93005; 94640; 94664; 94668; 94760; 96365; 99284; J0456; J0696; J1650; J1815; J1940; J2920; J2930; J3490

== ENCOUNTER 2018-11-27 11:48 | Outpatient (CLI) | payer OTHER, BC ==
[~2018-11-27 11:48] MED LIST changes: +NEXIUM20 M1 PO; +PANTOPRAZOLE 40MG TA PO; +RANI150T78 PO; +VITAMIN D3400 UNI2 PO
[2018-11-27 12:46] LABS: PLATELET COUNT 165 K/uL (142-355)
[2018-11-27 13:15] LABS: POTASSIUM 3.3 mmol/L (3.6-5.2)
== END 2018-11-27 20:05 | disposition home or self-care (01) ==
LOC: LAB 11:48
PROVIDERS: Internal Medicine
DX: J16.8 Pneumonia due to other specified infectious organisms (principal); N18.4 Chronic kidney disease, stage 4 (severe)
CPT/HCPCS: 80053; 85027

== ENCOUNTER 2018-11-28 14:23 | Outpatient (CLI) | payer OTHER, BC | END 2018-11-28 15:03 | disposition short-term general hospital (02) | LOC: AMB 14:23 | DX: R00.1 Bradycardia, unspecified (principal) | CPT/HCPCS: A0425; A0427 ==

== ENCOUNTER 2018-12-02 11:54 | Outpatient (CLI) | payer OTHER, BC ==
[2018-12-02 12:36] LABS: PLATELET COUNT 174 K/uL (142-355)
[2018-12-02 13:03] LABS: POTASSIUM 3.9 mmol/L (3.6-5.2)
== END 2018-12-02 23:02 | disposition home or self-care (01) ==
LOC: LAB 11:54
PROVIDERS: Internal Medicine Nephrology
DX: I12.9 Hypertensive chronic kidney disease with stage 1 through stage 4 chronic kidney disease, or unspecified chronic kidney disease (principal); N18.4 Chronic kidney disease, stage 4 (severe); I73.89 Other specified peripheral vascular diseases; N18.9 Chronic kidney disease, unspecified; D63.1 Anemia in chronic kidney disease; Z79.899 Other long term (current) drug therapy
CPT/HCPCS: 80053; 80061; 81000; 82306; 82570; 82607; 82728; 82746; 83036; 83970; 84100; 84155; 84439; 84443; 85027; 85044

== ENCOUNTER 2019-01-21 16:18 | Emergency (ER) | payer OTHER, BC ==
[~2019-01-21] VITALS: Ht 182.9 cm; Wt 108.9 kg
[2019-01-21 18:38] LABS: PLATELET COUNT 217 K/uL (142-355)
[2019-01-21 18:57] LABS: POTASSIUM 4.2 mmol/L (3.6-5.2)
[2019-01-21 20:41] VITALS: BP 139/78; TEMP 98.4
== END 2019-01-21 20:41 | disposition home or self-care (01) ==
LOC: ED 16:18
PROVIDERS: Family Medicine
PROC: 2W3QX1Z Immobilization of Right Lower Leg using Splint (ICD-10-PCS; principal; 2019-01-21)
DX: S82.54XA Nondisplaced fracture of medial malleolus of right tibia, initial encounter for closed fracture (principal); N39.0 Urinary tract infection, site not specified; J18.9 Pneumonia, unspecified organism; I48.91 Unspecified atrial fibrillation
CPT/HCPCS: 36415; 80053; 81000; 84439; 84443; 84481; 85027; 87070; 87077; 87086; 87088; 87185; 87186; 87205; 93005; 96372; 99284; J0696

== ENCOUNTER 2019-03-10 09:57 | Outpatient (CLI) | payer OTHER, BC | END 2019-03-10 22:47 | disposition home or self-care (01) | LOC: RAD 09:57 | DX: J40 Bronchitis, not specified as acute or chronic (principal) ==

== ENCOUNTER 2019-03-27 10:50 | Outpatient (CLI) | payer OTHER, BC | END 2019-03-27 11:31 | disposition short-term general hospital (02) | LOC: AMB 10:50 | DX: R07.89 Other chest pain (principal); R06.03 Acute respiratory distress | CPT/HCPCS: A0425; A0427 ==

== ENCOUNTER 2019-04-08 11:07 | Outpatient (CLI) | payer OTHER, BC | END 2019-04-08 11:39 | disposition short-term general hospital (02) | LOC: AMB 11:07 | DX: R07.89 Other chest pain (principal); I21.29 ST elevation (STEMI) myocardial infarction involving other sites | CPT/HCPCS: A0425; A0427 ==

== ENCOUNTER 2019-04-21 16:52 | Inpatient (IN) | payer OTHER, BC ==
[~2019-04-21] VITALS: Ht 185.4 cm; Wt 106.8 kg
[2019-04-21 18:09] LABS: PLATELET COUNT 257 K/uL (142-355)
[2019-04-21 18:24] LABS: POTASSIUM 3.9 mmol/L (3.6-5.2)
[2019-04-21 18:28] VITALS: BP 118/61; TEMP 97.9; Ht 185.4 cm; Wt 106.8 kg
[2019-04-22 08:00] VITALS: BP 118/74; TEMP 97.2
[2019-04-22 20:00] VITALS: BP 126/47; TEMP 97.8
[2019-04-23 08:00] VITALS: BP 125/59; TEMP 98.3
[2019-04-23 20:00] VITALS: BP 130/62; TEMP 98.2
[2019-04-24 08:00] VITALS: BP 138/61; TEMP 97.8
[2019-04-24 20:00] VITALS: BP 146/73; TEMP 98.4
[2019-04-25 08:00] VITALS: BP 158/59; TEMP 98
[2019-04-25 20:00] VITALS: BP 149/71; TEMP 98.5
[2019-04-26 08:00] VITALS: BP 110/74; TEMP 97.8
[2019-04-26 20:00] VITALS: BP 168/75; TEMP 97.9
[2019-04-27 08:00] VITALS: BP 163/74; TEMP 98.1
[2019-04-27 20:00] VITALS: BP 161/76; TEMP 98.1
[2019-04-28 05:45] LABS: PLATELET COUNT 194 K/uL (142-355)
[2019-04-28 06:19] LABS: POTASSIUM 3.3 mmol/L (3.6-5.2)
[2019-04-28 08:21] VITALS: BP 131/65; TEMP 97.4
[2019-04-28 20:00] VITALS: BP 146/63; TEMP 98.3
[2019-04-29 08:00] VITALS: BP 129/93; TEMP 98.7
== END 2019-04-29 14:20 | disposition home or self-care (01) | DRG 556 ==
LOC: MED/SURG 16:52
PROVIDERS: ADMIT Internal Medicine
DX: M62.81 Muscle weakness (generalized) (principal); N18.4 Chronic kidney disease, stage 4 (severe); I13.0 Hypertensive heart and chronic kidney disease with heart failure and stage 1 through stage 4 chronic kidney disease, or unspecified chronic kidney disease; D64.89 Other specified anemias; E03.8 Other specified hypothyroidism; K21.9 Gastro-esophageal reflux disease without esophagitis; J44.9 Chronic obstructive pulmonary disease, unspecified; E11.22 Type 2 diabetes mellitus with diabetic chronic kidney disease; R62.7 Adult failure to thrive; R13.12 Dysphagia, oropharyngeal phase; I48.2 Chronic atrial fibrillation
CPT/HCPCS: 36415; 80048; 80053; 85027; 87081

== ENCOUNTER 2019-05-14 17:22 | Outpatient (CLI) | payer OTHER, BC | END 2019-05-14 20:15 | disposition home or self-care (01) | LOC: RAD 17:22 | DX: R05 Cough (principal) ==

== ENCOUNTER 2019-05-27 11:07 | Outpatient (CLI) | payer OTHER, BC | END 2019-05-27 11:42 | disposition short-term general hospital (02) | LOC: AMB 11:07 | DX: R07.89 Other chest pain (principal); M79.602 Pain in left arm; M79.601 Pain in right arm | CPT/HCPCS: A0425; A0427 ==

== ENCOUNTER 2019-08-26 09:26 | Outpatient (CLI) | payer OTHER, BC ==
[2019-08-26 10:34] LABS: PLATELET COUNT 235 K/uL (142-355)
[2019-08-26 10:38] LABS: POTASSIUM 4.2 mmol/L (3.6-5.2)
== END 2019-08-26 20:08 | disposition home or self-care (01) ==
LOC: RAD 09:26
PROVIDERS: Internal Medicine Nephrology
DX: I12.9 Hypertensive chronic kidney disease with stage 1 through stage 4 chronic kidney disease, or unspecified chronic kidney disease (principal); N18.4 Chronic kidney disease, stage 4 (severe); I73.89 Other specified peripheral vascular diseases; D63.1 Anemia in chronic kidney disease; R05 Cough; R06.02 Shortness of breath; E11.9 Type 2 diabetes mellitus without complications
CPT/HCPCS: 36415; 80053; 80061; 81000; 82306; 82570; 82607; 82728; 82746; 83036; 83970; 84100; 84155; 84439; 84443; 85027; 85044

== ENCOUNTER 2019-10-08 15:26 | Outpatient (CLI) | payer OTHER, BC ==
[2019-10-08 15:43] LABS: PLATELET COUNT 181 K/uL (142-355)
== END 2019-10-08 20:31 | disposition home or self-care (01) ==
LOC: LABW 15:26
PROVIDERS: Nurse Practitioner Family
DX: D64.89 Other specified anemias (principal)
CPT/HCPCS: 36415; 85027

== ENCOUNTER 2019-12-05 09:50 | Outpatient (CLI) | payer OTHER, BC ==
[2019-12-05 13:02] LABS: POTASSIUM 4.6 mmol/L (3.6-5.2)
[2019-12-05 13:14] LABS: PLATELET COUNT 179 K/uL (142-355)
== END 2019-12-05 20:29 | disposition home or self-care (01) ==
LOC: LAB 09:50
PROVIDERS: Internal Medicine Hematology & Oncology
DX: R91.1 Solitary pulmonary nodule (principal); Z85.46 Personal history of malignant neoplasm of prostate; J44.9 Chronic obstructive pulmonary disease, unspecified; E11.9 Type 2 diabetes mellitus without complications; N18.3 Chronic kidney disease, stage 3 (moderate); I50.9 Heart failure, unspecified; R79.89 Other specified abnormal findings of blood chemistry
CPT/HCPCS: 36415; 80053; 82378; 85027

== ENCOUNTER 2019-12-12 13:40 | Outpatient (CLI) | payer OTHER, BC ==
[2019-12-12 14:00] LABS: PLATELET COUNT 143 K/uL (142-355)
[2019-12-12 14:16] LABS: POTASSIUM 4.2 mmol/L (3.6-5.2)
== END 2019-12-12 19:54 | disposition home or self-care (01) ==
LOC: LAB 13:40
PROVIDERS: Obstetrics & Gynecology Obstetrics
DX: I11.0 Hypertensive heart disease with heart failure (principal); I50.9 Heart failure, unspecified; E11.9 Type 2 diabetes mellitus without complications; R30.0 Dysuria
CPT/HCPCS: 80053; 81000; 83880; 85027